=== PATIENT | female | born 1980 | race Two or more races ===

== ENCOUNTER 2018-03-23 12:26 | Emergency (ER) | payer OTHER ==
[~2018-03-23] VITALS: Ht 157.5 cm; Wt 77.1 kg
--- NOTE | 2018-03-23 13:31 | Emergency Room Report ---
History of Present Illness General Chief Complaint: General Complaint Source: Patient Present Illness HPI 37-year-old female patient presents ER complaining of feeling anxious for the past few weeks. Reports that she has stressors at home, is currently going through a breakup, and started a new job responsibilities. Reports that all of these factors are contributing to her feeling more nervous and anxious for the past few weeks. Reports history of similar symptoms in the past. Reports was previously spoken with therapist but has never been prescribed any medications. Reports has not seen her doctor therapist in some time. Denies thoughts of hurting herself or others. Denies other acute symptoms. denies drug or alcohol use. Allergies: Coded Allergies: No Known Allergies (Unverified , 03/23/18) Patient History Past Medical History: see triage record Last Menstrual Period: 03/09/18 Reviewed Nursing Documentation: PMH: Agreed; PSxH: Agreed Nursing Documentation-PMH Past Medical History: No Stated History Review of Systems All Other Systems: negative except mentioned in HPI Physical Exam Vital Signs Date Time Temp Pulse Resp B/P (MAP) Pulse Ox O2 Delivery O2 Flow Rate FiO2 03/23/18 12:39 97.8 79 18 126/85 96 Room Air 97.9 Sp02 EP Interpretation: reviewed, normal General Appearance: well appearing, no apparent distress, alert, GCS 15, non- toxic Head: normocephalic, atraumatic Eyes: bilateral eye normal inspection, bilateral eye PERRL ENT: hearing grossly normal, normal pharynx, no angioedema, normal voice, uvula midline, moist mucus membranes Neck: full range of motion Respiratory: lungs clear, normal breath sounds, no rhonchi, no respiratory distress, no accessory muscle use, no wheezing, speaking full sentences Cardiovascular #1: regular rate, rhythm, no edema Musculoskeletal: back normal, digits/nails normal, gait/station normal, normal range of motion, non-tender Neurologic: alert, oriented x3, responsive, motor strength/tone normal, sensory intact Psychiatric: mood/affect normal, no suicidal/homicidal ideation Skin: no rash Medical Decision Making PA Attestation Dr. Madden is my supervising Physician whom patient management has been discussed with. Diagnostic Impression: Primary Impression: Feeling anxious ER Course Pt. presents to the ED c/o feeling anxious. Ddx considered but are not limited to anxiety, panic attack, drugs. Vital signs: are WNL, pt. is afebrile ER COURSE: patient reports that she does not like taking medications for symptoms. Prefers to talk through her feelings. informed patient that she needs to follow -up with mental health urgent care. Also needs to contact her insurance to establish care with her primary care provider to get referral to mental health professional. Stable for discharge, no focal neuro deficits, lungs clear to auscultation. Well-appearing, do not believe patient is a danger to herself or others at this time. Provided with contact information for mental health urgent care. patient states she will follow up today. work note provided. physical exam benign, lungs clear to auscultation, no abdominal tenderness to palpation, no focal neural deficits, patient is stable for discharge to home. DISCHARGE: At this time pt is stable for d/c to home. Patient is resting comfortably, in no acute distress, nontoxic appearing, talking without difficulty. Patient to take medications as instructed Will provide with patient care instructions and any necessary prescriptions. Care plan and follow-up instructions provided. Patient instructed to follow-up with primary care provider in 3 - 5 days. Patient questions asked and answered. Patient reports understanding and agreement to treatment plan. ER precautions given. Patient instructed to return to ER immediately for any new or worsening of symptoms including but not limited to increasing SOB, persistent fever, chest pain, intractable vomiting. - Please note that this Emergency Department Report was dictated using [employer] and privacy consultant technology software, occasionally this can lead to erroneous entry secondary to interpretation by the dictation equipment. Last Vital Signs Date Time Temp Pulse Resp B/P (MAP) Pulse Ox O2 Delivery O2 Flow Rate FiO2 03/23/18 12:39 97.8 79 18 126/85 96 Room Air 97.9 Disposition: HOME, SELF-CARE Condition: Stable Patient Instructions: Generalized Anxiety Disorder Additional Instructions: Followup with primary care provider in 3 -5 days. Follow-up with mental health urgent care. Patient questions asked and answered. ER precautions given, patient instructed to return to ER immediately for any new or worsening of symptoms. Fermin Villasenor Mar 23, 2018 13:31
[2018-03-23 14:11] VITALS: BP 126/85
[2018-03-23 14:13] VITALS: BP 126/85
== END 2018-03-23 14:00 | disposition home or self-care (01) ==
LOC: EMR 13:35
DX: F41.9 Anxiety disorder, unspecified (principal)
CPT/HCPCS: 99282